=== PATIENT | female | born 1985 | race Caucasian/White ===

== ENCOUNTER 2017-04-25 17:46 | Emergency (ER) | payer OTHER | END 2017-04-25 19:24 | disposition home or self-care (01) | LOC: ER 17:46 | DX: S52.602A Unspecified fracture of lower end of left ulna, initial encounter for closed fracture (principal); V86.99XA Unspecified occupant of other special all-terrain or other off-road motor vehicle injured in nontraffic accident, initial encounter; Y92.009 Unspecified place in unspecified non-institutional (private) residence as the place of occurrence of the external cause; Z79.899 Other long term (current) drug therapy | CPT/HCPCS: 29125; 73060; 73080; 73090; 96372; 99070; 99283-25; J1170 ==